=== PATIENT | female | born 1955 | race Caucasian/White ===

== ENCOUNTER 2017-04-11 01:49 | Emergency (ER) | payer BC ==
[2017-04-11] MEDS ORDERED: 0.9 % SODIUM CHLORIDE 1000ML 1,000 ML IV PRN (02:02)
[2017-04-11 02:13] LABS: BASO % 0.4 % (0-6); EOS % 3.8 % (0-6); GRAN % 31.3 % (47-80); HEMOGLOBIN 14.8 gm/dl (11.6-16.0); LYMPH % 50.6 % (16-45); MEAN CELL VOLUME 90.5 fl (81-97); MEAN CORPUSCULAR HEMOGLOBIN 31.2 pg (27-33); MEAN CORPUSCULAR HGB CONC 34.4 g/dl (32-36); MEAN PLATELET VOLUME 10.3 fl (7.4-10.4); MONO % 13.9 % (0-9); PLATELET COUNT 296 K/uL (130-400); RED BLOOD COUNT 4.75 M/uL (3.80-5.40); RED CELL DISTRIBUTION WIDTH 13.7 % (11.5-14.5); WHITE BLOOD COUNT W/O DIFF 9.1 K/uL (4.2-12.2)
[2017-04-11] MEDS: NITROGLYCERIN 0.4MG SL TABLET #25 BTL SL PRN ×2 (02:13→02:20)
--- NOTE | 2017-04-11 02:20 | Emergency Department Record ---
History of Present Illness - General Chief Complaint: Chest Pain Stated Complaint: CHEST PAIN,BACK PAIN, POSSIBLY ATE SOMETHING FUNNY Time Seen by Provider: 04/11/17 02:02 Source: Patient Mode of Arrival: Ambulatory Limitations: No limitations - History of Present Illness Initial Comments: pt had cp this afternoon that went away. 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 it was a 9/10 but now has decreased to a 5/10. it is squeezing and she has nausea and sob. it radiates to her back. she has never had anything like this before. her parents young from other etiologies but her brother and sister have heart issues. 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 pt also states she feels like she has some indigestion and ate fried gizzards earlier today. Onset/Timin -: Hour(s) Onset: After eating Pain Location: Left chest, Right chest Pain Radiation: Back Severity scale (1-10): 5 Quality: Aching Consistency: Intermittent Improves With: Medication-other Worsens With: Nothing Anginal Symptoms: Diaphoresis, Nausea Treatments Prior to Arrival: Aspirin - Related Data Home Medications Medication Instructions Recorded Confirmed Last Taken Aspirin Chewable 81 mg PO DAILY 04/02/14 04/11/17 04/02/14 Venlafaxine HCl [Effexor Xr] 37.5 mg PO ASDIR 04/02/14 04/11/17 04/02/14 Folic Acid 1 mg PO DAILY 06/01/15 04/11/17 Unknown Multivitamin [Multi-Vitamin Daily] 1 each PO 04/11/17 Unknown Ranitidine HCl [Heartburn Relief] 150 mg PO BID 04/11/17 04/11/17 04/10/17 Allergies Allergy/AdvReac Type Severity Reaction Status Date / Time codeine Allergy Mild ABDOMINAL Verified 04/11/17 02:28 PAIN Travel Screening - Travel/Exposure Within Last 30 Days Have you traveled within the last 30 days?: No - Travel Symptoms Symptom Screening: None Review of Systems Reviewed: No additional complaints except as noted below Constitutional: Reports: As per HPI. Denies: Chills, Fever, Malaise, Night sweats, Weakness, Weight change Eyes: Reports: As per HPI. Denies: Eye discharge, Eye pain, Photophobia, Vision change ENT: Reports: As per HPI. Denies: Congestion, Dental pain, Ear pain, Epistaxis , Hearing loss, Throat pain Respiratory: Reports: As per HPI. Denies: Cough, Dyspnea, Hemoptysis, Stridor, Wheezes Cardiovascular: Reports: As per HPI. Denies: Arrhythmia, Chest pain, Dyspnea on exertion, Edema, Murmurs, Orthopnea, Palpitations, Paroxysmal nocturnal dyspnea, Rheumatic Fever, Syncope Endocrine: Reports: As per HPI. Denies: Fatigue, Heat or cold intolerance, Polydipsia, Polyuria Gastrointestinal: Reports: As per HPI. Denies: Abdominal pain, Constipation, Diarrhea, Hematemesis, Hematochezia, Melena, Nausea, Vomiting Genitourinary: Reports: As per HPI. Denies: Abnormal menses, Discharge, Dyspareunia, Dysuria, Frequency, Hematuria, Incontinence, Retention, Urgency Musculoskeletal: Reports: As per HPI. Denies: Arthralgia, Back pain, Gout, Joint swelling, Myalgia, Neck pain Skin: Reports: As per HPI. Denies: Bruising, Change in color, Change in hair/ nails, Lesions, Pruritus, Rash Neurological: Reports: As per HPI. Denies: Abnormal gait, Confusion, Headache, Numbness, Paresthesias, Seizure, Tingling, Tremors, Vertigo, Weakness Psychiatric: Reports: As per HPI. Denies: Anxiety, Auditory hallucinations, Depression, Homicidal thoughts, Suicidal thoughts, Visual hallucinations Hematological/Lymphatic: Reports: As per HPI. Denies: Anemia, Blood Clots, Easy bleeding, Easy bruising, Swollen glands Past Medical History - SOCIAL HISTORY Smoking Status: Former smoker - RESPIRATORY Hx Respiratory Disorders: Yes Hx Bronchitis: Yes Hx Pneumonia: Yes (1989) - CARDIOVASCULAR Hx Cardio Disorders: Yes Hx Hypertension: Yes (?not being treated; monitering) Hx Hypotension: Yes Comment:: high cholesterol - NEURO Hx Neuro Disorders: Yes Hx Headaches: Yes (occass.) Hx TIA: Yes (4 yrs ago. slight memory loss.) - GI Hx GI Disorders: No - Hx Genitourinary Disorders: No - ENDOCRINE Hx Endocrine Disorders: No Hx Diabetes: No Hx Thyroid Disease: No - MUSCULOSKELETAL Hx Musculoskeletal Disorders: Yes Hx Arthritis: Yes (back) Comment:: cervical sx; ruptured disc - PSYCH Hx Psych Problems: No - HEMATOLOGY/ONCOLOGY Hx Hematology/Oncology Disorders: No Family Medical History Any Significant Family History?: Yes Family Hx Comment (NOT TO BE USED IN PLACE OF ITEMS BELOW): dad_ ALS. grandparents dm. mom CA Hx Cancer: Father, Mother Hx Diabetes: Grandparents Hx Heart Disease: Brother/Sister Physical Exam - General General Appearance: Alert, Oriented x3, Cooperative, Mild distress - Head Head exam: Normal inspection - Eye Eye exam: Normal appearance, PERRL, EOMI Pupils: Normal accommodation - ENT ENT exam: Normal exam, Mucous membranes moist, Normal external ear exam, Normal orophraynx Ear exam: Normal external inspection. negative: External canal tenderness Nasal Exam: Normal inspection. negative: Discharge, Sinus tenderness Mouth exam: Normal external inspection, Tongue normal Teeth exam: Normal inspection. negative: Dental caries Throat exam: Normal inspection. negative: Tonsillar erythema, Tonsillar exudate - Neck Neck exam: Normal inspection, Full ROM. negative: Tenderness - Respiratory Respiratory exam: Normal lung sounds bilaterally. negative: Respiratory distress - Cardiovascular Cardiovascular Exam: Regular rate, Normal rhythm, Normal heart sounds - GI/Abdominal GI/Abdominal exam: Soft, Normal bowel sounds. negative: Tenderness - Rectal Rectal exam: Deferred - exam: Deferred - Extremities Extremities exam: Normal inspection, Full ROM, Normal capillary refill. negative: Tenderness - Back Back exam: Reports: Normal inspection, Full ROM. Denies: Muscle spasm, Rash noted, Tenderness - Neurological Neurological exam: Alert, CN II-XII intact, Normal gait, Oriented X3 - Psychiatric Psychiatric exam: Normal affect, Normal mood - Skin Skin exam: Dry, Intact, Normal color, Warm Course Vital Signs 04/11/17 04/11/17 04/11/17 02:00 02:02 02:11 Temperature 97.5 F L 97.5 F L Pulse Rate 72 76 Pulse Rate [ Fitness Assistant ] Pulse Rate [ 72 Pulse Ox Probe] Respiratory 16 20 20 Rate Blood Pressure 133/101 Blood Pressure 133/101 [Left Arm] Blood Pressure [Right Arm] Pulse Ox 100 98 96 04/11/17 02:16 Temperature Pulse Rate Pulse Rate [ 74 Fitness Assistant ] Pulse Rate [ Pulse Ox Probe] Respiratory 20 Rate Blood Pressure Blood Pressure [Left Arm] Blood Pressure 155/100 [Right Arm] Pulse Ox 99 - Reevaluation(s) Reevaluation #1: 04/11/17 02:47 pain is gone after 2 ntg. pt d/w dr raya Medical Decision Making - Lab Data Result diagrams: 04/11/17 02:10 04/11/17 02:10 Lab Results 04/11/17 Range/Units 02:10 WBC 9.1 (4.2-12.2) K/uL RBC 4.75 (3.80-5.40) M/uL Hgb 14.8 (11.6-16.0) gm/dl Hct 43.0 (35.0-47.0) % MCV 90.5 (81-97) fl MCH 31.2 (27-33) pg MCHC 34.4 (32-36) g/dl RDW 13.7 (11.5-14.5) % Plt Count 296 (130-400) K/uL MPV 10.3 (7.4-10.4) fl Gran % 31.3 L (47-80) % Lymphocytes % 50.6 H (16-45) % Monocytes % 13.9 H (0-9) % Eosinophils % 3.8 (0-6) % Basophils % 0.4 (0-6) % Disposition Disposition: Transfer Clinical Impression: Unstable angina Disposition: Acute [facility] 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
[2017-04-11 02:25] LABS: ALB/GLOB RATIO 1.4 (1.1-1.8); ALBUMIN 4.2 gm/dL (3.5-5.0); ALKALINE PHOSPHATASE 62 U/L (38-126); ALT/SGPT 33 U/L (9-52); ANION GAP 10.1 (7-16); AST/SGOT 20 U/L (14-36); BILIRUBIN,TOTAL 0.86 mg/dL (0.2-1.3); BLOOD UREA NITROGEN 13 mg/dL (7-17); CARBON DIOXIDE 22.9 mmol/L (22-30); CREATINE PHOSPHOKINASE 84 U/L (30-135); CREATININE 0.9 mg/dL (0.52-1.04); EST GLOMERULAR FILTRATION RATE > 60 ml/min; GLUCOSE,RANDOM 101 mg/dL (70-110); TOTAL PROTEIN 7.3 gm/dL (6.3-8.2)
[2017-04-11] MEDS ORDERED: HEPARIN SODIUM 1000 UNIT/1 ML 10ML VIAL IVP ONE (02:28)
[2017-04-11] MEDS ORDERED: HEPARIN SODIUM/D5W 25,000 UNITS/500 ML BAG IV SCH (02:30)
[2017-04-11 02:35] LABS: D-DIMER 0.36 mg/L FEU (0-0.59); PARTIAL THROMBOPLASTIN TIME 26.8 SECONDS (24.5-39.1)
[2017-04-11 02:37] LABS: CKMB 1.9 ug/L (0-6); TROPONIN I 0.022 ng/mL (0.00-0.034)
--- NOTE | 2017-04-12 07:59 | RADIOLOGY REPORT ---
EXAM: AP CHEST HISTORY: ACUTE GENERALIZED CHEST PAIN. TECHNIQUE: An AP view of the chest was obtained. Comparison: None. FINDINGS: The lungs are clear. The cardiac silhouette, diaphragm and osseous structures are unremarkable for age. IMPRESSION: NEGATIVE CHEST EXAMINATION. JOB NUMBER: [id number] MTDD
== END 2017-04-11 03:05 | disposition short-term general hospital (02) ==
LOC: ER 01:49
DX: I20.0 Unstable angina (principal); R06.02 Shortness of breath; R61 Generalized hyperhidrosis; R11.0 Nausea; Z87.891 Personal history of nicotine dependence
CPT/HCPCS: 71010; 80053; 82550; 82553; 83880; 84484; 85025; 85379; 85730; 93005; 93010; 96365; 96375; 99285

== ENCOUNTER 2018-12-13 07:51 | Day surgery (SDC) | payer MEDICARE, OTHER ==
[2018-12-13] MEDS ORDERED: PROPOFOL 10 MG/ML VIAL IV ONE (07:52)
[2018-12-13] MEDS ORDERED: LIDOCAINE 2% MDV (20MG/ML) 20ML VIAL IV ONE (07:52)
--- NOTE | 2018-12-13 15:40 | Operative Note ---
DATE OF SURGERY: 12/13/2018 SURGEON: Maria Teresa Martin MD OPERATION: COLONOSCOPY. INDICATIONS: This is a 62-year-old female with average risk for colorectal cancer who presented for screening colonoscopy. POSTOPERATIVE DIAGNOSES: 1. A 3 mm sessile polyp in the sigmoid colon that was removed by cold biopsy forceps. 2. Left-sided colonic diverticulosis. 3. Otherwise normal colon and terminal ileal mucosa. ANESTHESIA: Sedation is per Anesthesia. Pulse oximetry was monitored throughout the procedure to maintain O2 saturation of 90% or greater. Supplemental oxygen was administered via nasal cannula. Cardiac and vital signs were monitored throughout the duration of the procedure, and they were stable. The procedure of colonoscopy and risks and alternatives of the procedure, including the risk of bleeding and perforation, among others, were explained to the patient who voiced understanding and agreed to have the procedure done. Physical examination was performed, and the patient was found stable for sedation. PROCEDURE: The patient was placed in the left lateral position. Sedation was initiated. A digital rectal exam was performed and showed some mild external hemorrhoids with no palpable rectal masses. An Olympus PCF-180AL colonoscope was then inserted into the rectum under direct visualization. It was advanced to the cecum without difficulty. The ileocecal valve and appendiceal orifice were identified and photographed. The colonic mucosa was carefully examined upon introduction of the colonoscope. There were scattered diverticula noted in the sigmoid and descending colon. The colonoscope was then withdrawn while carefully examining the colonic mucosal surfaces after the terminal ileal was intubated and inspected for about 5 cm and it was normal. The cecum, ascending colon, transverse colon, the rest of the descending colon mucosa appeared normal. In the sigmoid colon was a 3 mm sessile polyp that was noted and was removed by cold biopsy forceps. The rest of the sigmoid colon and rectum appeared normal. Retroflexion was performed and it was normal. The colonoscope was then withdrawn and the procedure was terminated. The patient tolerated the procedure well without any immediate complications. The patient remained with stable vital signs and was transferred to the recovery room. RECOMMENDATIONS: 1. The patient should be on a high-fiber diet. 2. The patient is to have a repeat colonoscopy for surveillance in about 5 years. Thank you for allowing me to participate in the care of your patient. CC: Shorty LOFTON
== END 2018-12-13 10:20 | disposition home or self-care (01) ==
LOC: HOP 07:51
PROVIDERS: ATTEND Internal Medicine Gastroenterology
DX: Z12.11 Encounter for screening for malignant neoplasm of colon (principal); D12.5 Benign neoplasm of sigmoid colon; K57.30 Diverticulosis of large intestine without perforation or abscess without bleeding; K21.9 Gastro-esophageal reflux disease without esophagitis; E78.00 Pure hypercholesterolemia, unspecified; I10 Essential (primary) hypertension; R07.9 Chest pain, unspecified

== ENCOUNTER 2019-04-24 07:25 | Day surgery (SDC) | payer MEDICARE, OTHER ==
[~2019-04-24 07:25] MED LIST: ACETAMINOPHEN 1,000 MG/100 ML BTL IVPB ONE; MECLIZINE 25 MG TABLET PO ONE
[2019-04-24] MEDS ORDERED: LIDOCAINE 2% MDV (20MG/ML) 20ML VIAL IV ONE (07:26)
[2019-04-24] MEDS ORDERED: SEVOFLURANE 250 ML INH ONE (07:26)
[2019-04-24] MEDS ORDERED: ONDANSETRON HCL IV 4 MG/2 ML VIAL IVP ONE (07:26)
[2019-04-24] MEDS ORDERED: KETOROLAC 30 MG/ML VIAL IVP ONE (07:26)
[2019-04-24] MEDS ORDERED: PROPOFOL 10 MG/ML VIAL IV ONE (07:26)
[2019-04-24] MEDS ORDERED: RINGERS SOLUTION,LACTATED 1,000 ML IV ONE ×2 (07:50→09:37)
[2019-04-24] MEDS ORDERED: BUPIVACAINE 0.25% W/EPI MPF 30ML VIAL SQ ONE (09:29)
--- NOTE | 2019-04-24 11:21 | Operative Note ---
DATE OF SURGERY: 04/24/2019 SURGEON: Zuhair Oden DO PREOPERATIVE DIAGNOSES: 1. Torn medial meniscus of the right knee. 2. Chondromalacia of the right knee. POSTOPERATIVE DIAGNOSES: 1. Torn medial meniscus, right knee. 2. Suprapatellar plica, right knee. 3. 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 4. Chondrocalcinosis, right knee. OPERATION: 1. Arthroscopic partial medial meniscectomy, right knee. 2. Arthroscopic resection of suprapatellar plica, right knee. 3. Arthroscopic chondroplasty of the medial femoral condyle and patella, right knee. DESCRIPTION OF PROCEDURE: This 63-year-old female was taken to the operating room and placed in the supine position on the operating room table where general anesthesia was induced. The right lower extremity was elevated, prepped with Hibiclens, and draped in the usual sterile fashion after exsanguinating and tourniquet elevation to 300 mmHg and application of the arthroscopic knee fontaine. An inferolateral portal was established for the 4 mm arthroscope, and initial evaluation of the joint demonstrated normal appearance of the synovium of the suprapatellar pouch other than the fact that there was a band of suprapatellar plica present superiorly. This was resected through an inferomedial portal using the rotating shaver. There was also an area of grade 2 chondromalacia of the articular cartilage of the patella at the superior pole mostly on the lateral facet. This was shaved with a rotating shaver. The trochlea appeared normal. The medial and lateral gutters were examined and found to be normal. The medial component was entered, and grade 2 chondromalacia of the lateral aspect of the medial femoral condyle was present in an area of about 2 cm in greatest dimension with loose flaps of articular cartilage being present. Chondroplasty was performed to stabilize the articular cartilage there. There was a complex tear of the posterior horn of the medial meniscus. Utilizing the basket forceps, we resected unstable fragments of the meniscus. There was also chondrocalcinosis evident on and within the meniscus. As much of this was debrided as possible. We then directed our attention to the intracondylar notch, which was seen to be normal. The lateral compartment was entered, and chondrocalcinosis was also noted on the lateral meniscus but there was very little present. The lateral articular cartilage appeared normal. No tears in the meniscus were present laterally. The joint was copiously irrigated and suctioned and no additional findings were present on reexamination. The instruments were removed. The portals infiltrated with 0.25% Marcaine with epinephrine. Sterile dressings applied, tourniquet and knee fontaine released, and the patient taken to the recovery room in satisfactory condition. GROSS PATHOLOGY: This patient demonstrated advanced tearing of the posterior horn of the medial meniscus which was resected as described. Grade 2 chondromalacia of the medial femoral condyle and patella was present as described above. Chondrocalcinosis also noted. A band of the suprapatellar plica was also present and resected as described. ERNESTOD
== END 2019-04-24 11:07 | disposition home or self-care (01) ==
LOC: SUR 07:25
PROVIDERS: ATTEND Orthopaedic Surgery
DX: S83.231A Complex tear of medial meniscus, current injury, right knee, initial encounter (principal); M67.51 Plica syndrome, right knee; M11.261 Other chondrocalcinosis, right knee; M22.41 Chondromalacia patellae, right knee; E78.00 Pure hypercholesterolemia, unspecified; I10 Essential (primary) hypertension; Z98.61 Coronary angioplasty status; Z95.5 Presence of coronary angioplasty implant and graft; K21.9 Gastro-esophageal reflux disease without esophagitis
CPT/HCPCS: 29881; 29875; 01400; J1885; J2405; J7120